=== PATIENT | female | born 1990 | race African-American/Black ===

== ENCOUNTER 2018-10-13 21:53 | Inpatient (IN) | payer BC, SELFPAY ==
[2018-10-14] MEDS ORDERED: NS w/ Oxytocin 10 units 500 ML IV SCH (00:31)
[2018-10-14] MEDS ORDERED: NS / Oxytocin 40 units/1000ml 1,000 ML IV PRN (00:31)
[2018-10-14] MEDS ORDERED: Ondansetron PF 4 MG/2 ML Vial IVP PRN ×2 (00:31→09:35)
[2018-10-14] MEDS ORDERED: Meperidine HCl/PF 25 MG/ML VIAL IM/IV PRN (00:31)
[2018-10-14] MEDS ORDERED: Carboprost 250 MCG/ML AMP IM PRN (00:31)
[2018-10-14] MEDS ORDERED: HYDROcodone/Acetaminophen 5/325 mg Tablet PO PRN (00:31)
[2018-10-14] MEDS ORDERED: Methylergonovine 0.2 MG/ML VIAL IM PRN (00:31)
[2018-10-14] MEDS ORDERED: Acetaminophen 500 MG TAB PO PRN (00:31)
[2018-10-14] MEDS ORDERED: Lidocaine 1% (PF) 30 ML VIAL SC PRN (00:31)
[2018-10-14] MEDS ORDERED: Misoprostol 200 MCG TAB PR PRN (00:31)
[2018-10-14] MEDS ORDERED: Promethazine HCl 25 MG/ML VIAL IM PRN ×2 (00:31→09:35)
[2018-10-14] MEDS ORDERED: Butorphanol Tartrate 1 MG/ML VIAL SLOW IVP PRN (00:31)
[2018-10-14] MEDS ORDERED: Ibuprofen 800 MG TAB PO PRN (00:31)
[2018-10-14 00:37] VITALS: BMI 33.8
[2018-10-14 01:40] LABS: Mean Corpuscular HGB CONC 32.8 g/dL (32.0-36.0); Mean Corpuscular Hemoglobin 26.7 pg (27.0-31.0); Mean Corpuscular Volume 81.2 fL (78.0-98.0); Mean Platelet Volume 10.7 fL (7.4-10.4); Platelet Count 203 thou/uL (130-400); Red Blood Cell (RBC) Count 4.49 mill/uL (4.20-5.40); White Blood Cell (WBC) Count 8.8 thou/uL (4.8-10.8)
[2018-10-14] MEDS: Lactated Ringer's 1,000 ML IV SCH ×5 (01:40→22:55)
[2018-10-14] MEDS: Misoprostol 100 MCG TAB VAG SCH ×5 (01:42→20:02)
[2018-10-14 01:58] LABS: ALT (SGPT) 15 U/L (8-55); AST (SGOT) 19 U/L (5-34); Albumin 3.1 g/dL (3.5-5.0); Alkaline Phosphatase 219 U/L (40-150); Anion Gap 13 mmol/L (10-20); BUN (Urea Nitrogen) 6 mg/dL (7.0-18.7); Bilirubin, Total 0.3 mg/dL (0.2-1.2); Calc. Creatinine Clearance 175 mL/min (70-130); Calcium 8.8 mg/dL (7.8-10.44); Carbon Dioxide 18 mmol/L (22-29); Chloride 110 mmol/L (98-107); Estimated GFR-MDRD Greater than 90; Glucose 93 mg/dL (70-105); Potassium 3.7 mmol/L (3.5-5.1); Protein, Total 6.1 g/dL (6.0-8.3); Sodium 137 mmol/L (136-145)
[2018-10-14 01:58] LABS: Creatinine, Urine 30.83 mg/dL (47-110); Protein, Urine Random Quant Less than 10 mg/dL (1-14)
[2018-10-14 02:16] LABS: HBSAg Index 0.32 S/CO (0-0.99); Hep B Surf Ag Non-Reactive S/CO (NonReactive)
[2018-10-14] MEDS ORDERED: Calcium Gluc 4.6 MEQ/10 ML (100 MG/ML) SLOW IVP PRN (02:22)
[2018-10-14] MEDS ORDERED: Magnesium Sulfate 20 gm/500 ml 20 GM/500 ML BAG ONE (02:22)
--- NOTE | 2018-10-14 02:28 | PDOC.EVN ---
Event Note - Event Note Event Note: Call from Dr. Del Toro. Pt. admitted for induction, now with elevated BPs. Labs WNL, plts OK. Multiple severe range BPs reported to me by Labor RN. Rec. MgSo4 now, Labetalol prn further severe range BPs.
[2018-10-14] MEDS ORDERED: Magnesium Sulfate 20 GM/WATER 500 ML BAG IVPB SCH (02:30)
[2018-10-14] MEDS: Magnesium Sulfate 20 gm/500 ml 20 GM/500 ML BAG IVPB SCH ×3 (02:51→20:16)
[2018-10-14 04:29] LABS: Syphilis Antibody Nonreactive (Nonreactive); Syphilis Antibody Index 0.02 S/CO (<1.00 Non-Reactive)
[2018-10-14] MEDS ORDERED: Fentanyl 4 mcg/Bup 0.1% Cadd 100 ML ONE ×3 (07:31→22:48)
[2018-10-14] MEDS ORDERED: hydrALAZINE 20 MG/ML VIAL ONE (07:37)
[2018-10-14] MEDS ORDERED: Labetalol HCl 100 MG/20 ML VIAL SLOW IVP SCH (08:00)
[2018-10-14] MEDS ORDERED: Eucerin (Mineral Oil/Petrolatum,White) 30 gm Jar TOP PRN (09:35)
[2018-10-14] MEDS ORDERED: diphenhydrAMINE 50 MG/ML VIAL IVP PRN (09:35)
[2018-10-14] MEDS ORDERED: Lactated Ringer's 500 ML IV PRN (09:35)
[2018-10-14] MEDS ORDERED: Acetaminophen 325 MG TAB PO PRN (09:35)
[2018-10-14] MEDS ORDERED: Naloxone HCl 0.4 mg/ml Vial IVP PRN ×2 (09:35)
[2018-10-14] MEDS ORDERED: ePHEDrine/0.9% NaCl/PF SYRINGE 50 mg/10 ml SLOW IVP PRN (09:35)
[2018-10-14] MEDS ORDERED: Communication Order-Pharmacy FS SCH (09:45)
[2018-10-14] MEDS ORDERED: ePHEDrine 50 MG/ML VIAL ONE (10:38)
[2018-10-14] MEDS ORDERED: Lidocaine 2% PF 5 ML VIAL ONE (10:38)
--- NOTE | 2018-10-14 11:42 | PDOC.LDHP ---
Labor and Delivery H&P Chief complaint: scheduled induction (Arrived for IOL (elective) found to have severe range PIH) HPI: Here for elective IOL, on arrival found to have severe range BP. No QUIROZ. No visual changes. No increased swelling. No RUQ pain. Current gestational age (weeks): 39 Due date: 10/21/18 Dating criteria: first trimester ultrasound Grav: 1 Para: 0 Current complications: preeclampsia with severe features Abnormal US findings: No Current medications: none Previous surgical history: none Allergies/Adverse Reactions: Allergies Allergy/AdvReac Type Severity Reaction Status Date / Time No Known Allergies Allergy Verified 10/14/18 00:38 Social history: none - Physical Exam General: NAD, resting Heart: RRR Lungs: nonlabored breathing Abdomen: NTTP Extremeties: trace edema FHT: category 1 - Vaginal Exam cm dilated: 0 Effacement: 0% Station: -3 - OB Labs Blood type: O RH: positive Antibody Screen: negative HIV: negative RPR: negative HEPSAg: negative 1 hour GCT: negative GBS: negative Urine drug screen: not done Rubella: immune - Assessment L&D Assessment: medically indicated induction - Plan Plan: admit to L&D, cervical ripening, informed consent obtained (Cytotec followed by pitocin. Magnesium started for severe PIH. Will continue 24 hours PP.), magnesium for seizure prophylaxis, anesthesia consult for pain management
[2018-10-14] MEDS ORDERED: Bupivacaine/Epinephrine 0.25% 30 ML VIAL ONE (11:50)
--- NOTE | 2018-10-14 13:00 | PDOC.EVN ---
Event Note - Event Note Event Note: AROM with clear fluid. Dark blood and small clot on the pad prior to AROM. Fluid clear. IUPC placed without incident. FWB category I.
[2018-10-14] MEDS: Fentanyl 4 mcg/Bupivacaine 0.1% Cassette 100 ML EPIDURAL SCH ×2 (16:57→22:57)
[2018-10-14] MEDS: hydrALAZINE 20 MG/ML VIAL SLOW IVP PRN (20:41)
[2018-10-14] MEDS ORDERED: CEFAZOLIN 2 GM in Premix Bag 1 BAG IVPB SCH (23:45)
[2018-10-14] MEDS ORDERED: Bicitra 30 ML UDCUP PO SCH (23:45)
[2018-10-14] MEDS ORDERED: Lidocaine 2% 10 ML INJ ONE ×2 (23:47→23:50)
[2018-10-14] MEDS ORDERED: Oxytocin 10 UNITS/ML VIAL ONE (23:48)
[2018-10-14] MEDS ORDERED: Ondansetron PF 4 MG/2 ML Vial ONE (23:48)
[2018-10-14] MEDS ORDERED: Metoclopramide HCl 10 MG/2 ML VIAL ONE (23:48)
[2018-10-14] MEDS ORDERED: ePHEDrine/0.9% NaCl/PF SYRINGE 50 mg/10 ml ONE (23:49)
[2018-10-14] MEDS ORDERED: PHENYLEPHRINE-NS 100 MCG/ML 10 ML SYRINGE ONE (23:49)
[2018-10-14] MEDS ORDERED: EPINEPHrine 1 MG/ML AMP ONE (23:49)
[2018-10-14] MEDS ORDERED: Azithromycin 500 MG in Sodium Chloride 0.9% 250 ML 250 ML IVPB SCH (23:59)
[2018-10-15] MEDS ORDERED: MORPHINE 5 MG/10 ML PF VIAL ONE
[2018-10-15] MEDS ORDERED: HYDROmorphone 2 MG/ML VIAL SLOW IVP PRN (00:15)
[2018-10-15] MEDS ORDERED: Meperidine HCl/PF 25 MG/ML VIAL SLOW IVP PRN (00:15)
[2018-10-15] MEDS ORDERED: Naloxone HCl 0.4 mg/ml Vial IVP PRN ×2 (00:15)
[2018-10-15] MEDS ORDERED: diphenhydrAMINE 50 MG/ML VIAL IVP PRN (00:15)
[2018-10-15] MEDS ORDERED: Communication Order-Pharmacy FS SCH (00:15)
[2018-10-15] MEDS ORDERED: Ondansetron HCl/PF 4 MG/2 ML Vial IVP PRN (00:15)
[2018-10-15] MEDS ORDERED: Naloxone HCl 0.4 mg/ml Vial IV PRN (00:15)
[2018-10-15] MEDS ORDERED: Eucerin (Mineral Oil/Petrolatum,White) 30 gm Jar TOP PRN (00:15)
[2018-10-15] MEDS ORDERED: Ketorolac Tromethamine 30 MG/ML VIAL IVP PRN (00:15)
[2018-10-15] MEDS ORDERED: Promethazine HCl 25 MG/ML VIAL IM PRN (00:15)
[2018-10-15] MEDS ORDERED: Promethazine HCl 25 MG SUPP PR PRN (00:15)
[2018-10-15] MEDS ORDERED: L&D-Morphine 4 MG/ML VIAL SLOW IVP PRN (00:15)
[2018-10-15] MEDS ORDERED: Ondansetron PF 4 MG/2 ML Vial IVP PRN ×2 (00:15→04:14)
[2018-10-15] MEDS ORDERED: Ketorolac Tromethamine 30 MG/ML VIAL IVP SCH (00:15)
[2018-10-15] MEDS ORDERED: Ketorolac Tromethamine 30 MG/ML VIAL ONE (01:38)
[2018-10-15] MEDS: hydrALAZINE 20 MG/ML VIAL SLOW IVP PRN (01:58)
[2018-10-15] MEDS: Misoprostol 100 MCG TAB VAG SCH (03:09)
--- NOTE | 2018-10-15 03:21 | OP ---
DATE OF PROCEDURE: 10/15/2018 PREOPERATIVE DIAGNOSES: 1. Thirty-nine week intrauterine . 2. Severe preeclampsia. 3. Failure to progress with arrest of dilatation at 7 cm. POSTOPERATIVE DIAGNOSES: 1. Thirty-nine week intrauterine . 2. Severe preeclampsia. 3. Failure to progress with arrest of dilatation at 7 cm. 4. Occiput posterior presentation with asynclitism PROCEDURE PERFORMED: Primary low transverse section. [employer] SALES CONSULTANT: Ramon Del Toro. ANESTHESIA: Epidural. COMPLICATIONS: None. QUANTITATIVE BLOOD LOSS: 875 mL. FLUIDS: Per Anesthesia. FINDINGS: Vigorous male in cephalic, but OP and asynclitic presentation. Normal uterus, tubes, and ovaries bilaterally. Inflated bladder requiring dudley replacement. DESCRIPTION OF PROCEDURE: The patient was taken to the operating room, where epidural anesthesia was found to be adequate. She was prepared and draped in normal sterile fashion in the dorsal supine position with leftward tilt. A Pfannenstiel skin incision was made with a scalpel and carried down to the underlying layer of fascia. The fascia was incised and extended laterally with Serrato scissors. The fascia was then tented up with Antonina clamps and dissected off the rectus muscle sharply. The rectus muscles were in the midline. The peritoneum was identified and entered bluntly. The bladder was noted to be very large and inflated and attempts were made to flush the catheter for proper draining, however, that was unsuccessful. Her catheter had to be replaced at this time with proper deflation of the bladder. An Rolo retractor was placed in the abdomen and the lower uterine segment was incised in a transverse fashion with the scalpel. The incision was extended with cephalocaudal traction. The infant's head was delivered atraumatically and there was a mild dystocia of the abdomen following delivery of the shoulders, but the body was delivered atraumatically. The nose and mouth were suctioned with bulb suction. The cord was clamped and cut. The infant was handed off to the awaiting nursery team. The placenta was delivered manually and the uterus was cleared of all clots and debris. The uterine incision was repaired in a running locked fashion in 2 layers with #1 Monocryl with good hemostasis. The Rolo was removed from the abdomen and the gutters were cleared of all clots. The fascia was repaired in a running fashion with 0 PDS. The subcutaneous tissue was reapproximated with plain gut and the skin was closed with kenny. The patient tolerated the procedure well. Sponge, lap, and needle counts were correct x2. The patient was taken to recovery room in stable condition. Job ID: [id number] MTDD
[2018-10-15] MEDS ORDERED: Bisacodyl 10 MG SUPP PR PRN (04:14)
[2018-10-15] MEDS ORDERED: Calcium Gluconate 4.6 MEQ in Sodium Chloride 0.9% 100 ML IVPB PRN (04:14)
[2018-10-15] MEDS ORDERED: diphenhydrAMINE 25 MG CAP PO PRN (04:14)
[2018-10-15] MEDS ORDERED: Lanolin Ointment 7 GM TUBE TOP PRN (04:14)
[2018-10-15] MEDS ORDERED: Simethicone Chewable 80 MG TAB PO PRN (04:14)
[2018-10-15] MEDS: Magnesium Sulfate 20 gm/500 ml 20 GM/500 ML BAG IVPB SCH ×2 (06:02→18:52)
[2018-10-15] MEDS: Prenatal Vitamin 1 TAB PO SCH (08:02)
[2018-10-15] MEDS: Docusate Calcium (SURFAK) 240 MG CAP PO SCH ×2 (08:02→20:52)
[2018-10-15] MEDS: Ibuprofen 800 MG TAB PO SCH ×3 (08:02→22:26)
--- NOTE | 2018-10-15 08:43 | PDOC.EVN ---
Event Note - Event Note Event Note: Doing well few hours post C/S. Pain controlled. Urine output OK. Continue magnesium for 24 hours for severe PIH. Signed out to Dr. Bill and Santana for the weekend.
[2018-10-15] MEDS: HYDROcodone/Acetaminophen 5/325 mg Tablet PO PRN ×2 (15:18→19:55)
[2018-10-16] MEDS: HYDROcodone/Acetaminophen 5/325 mg Tablet PO PRN ×3 (02:13→20:10)
[2018-10-16 06:33] LABS: Mean Corpuscular HGB CONC 32.4 g/dL (32.0-36.0); Mean Corpuscular Hemoglobin 26.9 pg (27.0-31.0); Mean Corpuscular Volume 82.8 fL (78.0-98.0); Mean Platelet Volume 9.3 fL (7.4-10.4); Platelet Count 224 thou/uL (130-400); RBC Distribution Width 15.2 % (11.5-14.5); Red Blood Cell (RBC) Count 3.37 mill/uL (4.20-5.40); White Blood Cell (WBC) Count 16.6 thou/uL (4.8-10.8)
--- NOTE | 2018-10-16 06:50 | PDOC.PP ---
Post Progress Note Post Day #: 1 s/p Mag over at 0100 and dudley out at 0200 Subjective: No gas passed yet and no BM...but feels ok PO intake tolerated: yes Flatus: yes Ambulation: yes Weight Weight 185 lb Vitals reviewed in QS BPs well controlled overnight Dudley out at 0200...no spont void since - Physical Examination General: NAD Cardiovascular: no m/r/g Respiratory: clear to auscultation bilaterally Deviation from normal: distension, decresaed BS Extremities: negative homans (B) Skin: CS incision dry & intact (Laura) Neurological: no gross focal deficits Psychiatric: A&Ox3, normal affect Result Diagrams: 10/16/18 06:18 10/14/18 01:26 Additional Labs: Post Labs Blood Type O POSITIVE 10/14/18 01:26 Hep Bs Antigen Non-Reactive S/CO (NonReactive) 10/14/18 01:26 (1) delivery delivered Code(s): O82 - ENCOUNTER FOR DELIVERY WITHOUT INDICATION Status: Acute (2) Preeclampsia Code(s): O14.90 - UNSPECIFIED PRE-ECLAMPSIA, UNSPECIFIED TRIMESTER Status: Acute - Assessment/Plan POD 1 : MAG over at 0100, dudley out at 0200 No void yet: Abdmen with some tympany and indira distension: I have reviewed with charger operator helper...we will 1. give reglan IV and simethicone po 2. I/O cath to assess UOP 3. SCDs in bed
[2018-10-16] MEDS ORDERED: Metoclopramide HCl 10 MG/2 ML VIAL IVP PRN (06:57)
[2018-10-16] MEDS: Ibuprofen 800 MG TAB PO SCH ×3 (07:44→21:24)
--- NOTE | 2018-10-16 07:48 | PDOC.EVN ---
Event Note - Event Note Event Note: RN Bladder scan was 350-400ml We will I/) cath and proceed with reglan and simethicone to see if that helps with gas distension
[2018-10-16] MEDS: Metoclopramide HCl 10 MG/2 ML VIAL IVP SCH ×3 (08:05→20:13)
[2018-10-16] MEDS: Simethicone Chewable 80 MG TAB PO SCH ×3 (08:05→23:48)
[2018-10-16] MEDS: Prenatal Vitamin 1 TAB PO SCH (09:25)
[2018-10-16] MEDS: Docusate Calcium (SURFAK) 240 MG CAP PO SCH ×2 (09:25→21:24)
[2018-10-16] MEDS ORDERED: Adacel (T-DAP) 0.5 ML SYRINGE IM ONE (10:28)
[2018-10-16] MEDS ORDERED: HYDROcodone/Acetaminophen 5/325 mg Tablet PO PRN (10:28)
[2018-10-16] MEDS ORDERED: Methylergonovine 0.2 MG TAB PO PRN (10:28)
[2018-10-16] MEDS ORDERED: Methylergonovine 0.2 MG/ML VIAL IM PRN (10:28)
[2018-10-16] MEDS ORDERED: Acetaminophen 325 MG TAB PO PRN (10:28)
[2018-10-16] MEDS ORDERED: Misoprostol 200 MCG TAB PR PRN (10:28)
[2018-10-16] MEDS: Adacel (T-DAP) 0.5 ML SYRINGE IM ONE (13:12)
[2018-10-16] MEDS: Lactated Ringer's 1,000 ML IV SCH (13:16)
[2018-10-16] MEDS: Misoprostol 100 MCG TAB VAG SCH (13:17)
--- NOTE | 2018-10-16 14:29 | PDOC.EVN ---
Event Note - Event Note Event Note: Ileus -Pt is up and ambulating. She is passing gas. Pt reports having some incisional pain at this time. Denies any nausea or vomiting. Pt has been tolerating PO. Belly is still moderately distended and tight. -Pt still has dudley in place. We will try a voiding trial later this evening. -Will continue with reglan for next 24 hours. Addendum - Attending - Attending Attestation Date/Time: 10/16/18 [id number] I personally evaluated the patient and discussed the management with Dr. Lacey. I agree with the History, Examination, Assessment and Plan documented above with any addition or exceptions noted below. Dudley will be discontinued as she continues to ambulate.
--- NOTE | 2018-10-17 00:30 | PDOC.PP ---
Post Progress Note Post Day #: POD#2 Subjective: Feeling better, passing gas. No N/V. PO intake tolerated: yes Flatus: yes Ambulation: yes Vital Signs (12 hours) Temp Pulse Resp BP Pulse Ox 10/16/18 17:44 99.3 F 110 H 18 131/62 97 Weight Weight 83.915 kg - Physical Examination General: NAD Respiratory: non-labored breathing Abdominal: appropriately TTP Skin: CS incision dry & intact Psychiatric: normal affect Result Diagrams: 10/16/18 06:18 10/14/18 01:26 Additional Labs: Post Labs Blood Type O POSITIVE 10/14/18 01:26 Hep Bs Antigen Non-Reactive S/CO (NonReactive) 10/14/18 01:26 - Assessment/Plan Bowel function improving, much less distended. Ambulate. Royal removed last PM. Advance diet slowly.
[2018-10-17] MEDS: Metoclopramide HCl 10 MG/2 ML VIAL IVP SCH ×2 (02:18→09:18)
[2018-10-17] MEDS: HYDROcodone/Acetaminophen 5/325 mg Tablet PO PRN (02:57)
[2018-10-17] MEDS: Ibuprofen 800 MG TAB PO SCH ×3 (06:38→21:09)
[2018-10-17] MEDS: Simethicone Chewable 80 MG TAB PO SCH ×4 (06:39→23:33)
[2018-10-17 06:50] LABS: Hemoglobin 7.7 g/dL (12.0-16.0); Mean Corpuscular HGB CONC 32.9 g/dL (32.0-36.0); Mean Platelet Volume 8.6 fL (7.4-10.4); Platelet Count 201 thou/uL (130-400); RBC Distribution Width 14.9 % (11.5-14.5); Red Blood Cell (RBC) Count 2.85 mill/uL (4.20-5.40); White Blood Cell (WBC) Count 13.2 thou/uL (4.8-10.8)
[2018-10-17] MEDS: Docusate Calcium (SURFAK) 240 MG CAP PO SCH ×2 (09:16→21:09)
[2018-10-17] MEDS: Prenatal Vitamin 1 TAB PO SCH (09:17)
--- NOTE | 2018-10-18 00:13 | PDOC.EVN ---
Event Note - Event Note Event Note: ROLY Abdullahi Time: 001 Today is POD 3 S/P Magsulfate for Preeclampsia Patient now voiding 900ml at a time and ileus has resolved I was notified just now that last BP was 159/94 and BPs have been 150s/80-90s in review. No SXS S. Doing well O. BPs as stated A/P: PIH HX s/p CS and resolved ileus. Initial concern for some urinary retention now better: We will start po procardia 30mg XL (low dose) to assist BP management
[2018-10-18] MEDS: HYDROcodone/Acetaminophen 5/325 mg Tablet PO PRN (02:31)
[2018-10-18] MEDS: Simethicone Chewable 80 MG TAB PO SCH (05:33)
[2018-10-18] MEDS: Ibuprofen 800 MG TAB PO SCH (05:33)
[2018-10-18 07:54] VITALS: BP 136/84; TEMP 98.4
--- NOTE | 2018-10-18 08:08 | PDOC.PP ---
Post Progress Note Post Day #: 3 Subjective: Doing well. No c/o. Pain controlled. Bottle feeding. Ready to go home. PO intake tolerated: yes Flatus: yes Ambulation: yes Vital Signs (12 hours) Temp Pulse Resp BP BP Pulse Ox 10/18/18 07:53 98.4 F 79 16 136/84 98 10/18/18 05:30 74 135/76 10/17/18 23:53 81 159/94 H Weight Weight 185 lb - Physical Examination General: NAD Cardiovascular: no m/r/g, RRR Respiratory: clear to auscultation bilaterally, non-labored breathing Abdominal: + bowel sounds, lochia, no distention, appropriately TTP Skin: CS incision dry & intact Result Diagrams: 10/17/18 06:37 10/14/18 01:26 Additional Labs: Post Labs Blood Type O POSITIVE 10/14/18 01:26 Hep Bs Antigen Non-Reactive S/CO (NonReactive) 10/14/18 01:26 (1) delivery delivered Code(s): O82 - ENCOUNTER FOR DELIVERY WITHOUT INDICATION Status: Acute (2) Preeclampsia Code(s): O14.90 - UNSPECIFIED PRE-ECLAMPSIA, UNSPECIFIED TRIMESTER Status: Acute - Assessment/Plan Routine Post-op care. D/C kenny today. D/C home. F/u in 2 weeks for BP - will D/C with prodardia 30mg daily.
[2018-10-18] MEDS ORDERED: NIFEdipine XL 30 MG TAB PO SCH (09:00)
[2018-10-18] MEDS: Prenatal Vitamin 1 TAB PO SCH (09:29)
[2018-10-18] MEDS: Docusate Calcium (SURFAK) 240 MG CAP PO SCH (09:29)
[2018-10-18] MEDS: Adacel (T-DAP) 0.5 ML SYRINGE IM ONE (09:30)
== END 2018-10-18 10:40 | disposition home or self-care (01) | DRG 788 ==
LOC: L&D 21:53 → EEVIPCON 21:53 → UNDOADMIN 21:53 → L&D 22:53 → 3SW 10-16 09:41
PROVIDERS: ADMIT Family Medicine; ATTEND Family Medicine
PROC: 3E033VJ Introduction of Other Hormone into Peripheral Vein, Percutaneous Approach (ICD-10-PCS; principal; 2018-10-14)
PROC: 10907ZC Drainage of Amniotic Fluid, Therapeutic from Products of Conception, Via Natural or Artificial Opening (ICD-10-PCS; 2018-10-14)
PROC: 3E0P7VZ Introduction of Hormone into Female Reproductive, Via Natural or Artificial Opening (ICD-10-PCS; 2018-10-14)
PROC: 10D00Z1 Extraction of Products of Conception, Low, Open Approach (ICD-10-PCS; 2018-10-15)
DX: O14.14 Severe pre-eclampsia complicating childbirth (principal); Z3A.39 39 weeks gestation of pregnancy; O99.62 Diseases of the digestive system complicating childbirth; O61.0 Failed medical induction of labor; O62.0 Primary inadequate contractions; Z37.0 Single live birth
CPT/HCPCS: 36415; 51702; 80053; 81003; 82570; 83735; 84156; 85027; 86780; 86850; 86900; 86901; 87340; 90715; J0171; J0360; J0456; J0690; J1885; J2001; J2175; J2270; J2405; J2590; J2765; J3475; J3490; J7050